=== PATIENT | male | born 1975 | race Caucasian/White ===

== ENCOUNTER 2020-09-07 13:26 | Emergency (ER) | payer OTHER, SELFPAY ==
[2020-09-07 13:42] VITALS: BP 151/94; PULSE 108; RESP 16; TEMP 38.1; O2SAT 98
[2020-09-07 14:05] VITALS: BP 151/94; PULSE 108; RESP 16; TEMP 38.1; O2SAT 98
--- NOTE | 2020-09-07 14:14 | ED.GENADULT ---
HPI - General Adult General Chief complaint: Upper Respiratory Infection Stated complaint: achey fever Source: patient Mode of arrival: ambulatory Limitations: no limitations History of Present Illness HPI narrative: Patient presents for evaluation of generalized body aches. Indicates approximately 6 days ago he had symptoms that he thought were related to a common cold, particularly sinus congestion. Proximately 2 to 3 days ago he developed a headache and generalized body aches. Reports a burning sensation in bilateral naris and states that occasionally he feels a burning sensation in his lungs with deep inspiration. He has experienced hot flashes but denies any objective fever. He is also experiencing diarrhea. He denies any chills, nausea, vomiting, cough, shortness of breath. He does not smoke. No known recent sick contacts. He took ibuprofen for his symptoms, which has seemed to help. Related Data Home Medications Medication Instructions Recorded Confirmed Lam 09/07/20 Allergies Allergy/AdvReac Type Severity Reaction Status Date / Time No Known Allergies Allergy Verified 09/07/20 13:58 Review of Systems Review of Systems: Narrative: CONSTITUTIONAL: Reports hot flashes. Denies fever, chills, or sweats. EYES: Denies visual changes, redness, or discharge. ENT: Reports sinus congestion. Denies sore throat, or otalgia. CARDIOVASCULAR: Denies chest pain, palpitations, or edema. RESPIRATORY: Reports occasional burning in the chest with deep inspiration. Denies cough or dyspnea. GASTROINTESTINAL: Reports diarrhea. Denies abdominal pain, nausea, vomiting. GENITOURINARY: Denies dysuria or hematuria. SKIN: Denies rash or itching. MUSCULOSKELETAL:Reports generalized body aches NEUROLOGIC: Reports headache. Denies numbness, dizziness, or weakness. PSYCHIATRIC: Denies anxiety or depression. [facility] Past Medical History Medical History (Updated 09/07/20 @ 14:25 by Shekhar Yadav, IJEOMA, SHINE) No pertinent past medical history Surgical History Surgical History No pertinent past surgical history Family History Family History Mother No pertinent past medical history Father No pertinent past medical history Social History Social History Smoking status: Never smoker Alcohol intake: never Substance use: never Living arrangements: with roommate(s) Occupation/Education: occupation Additional occupation/education comments: Works at [employer] Gender identity (if verbalized by the patient): Male Spiritual care concerns: No Exam Narrative: Exam Narrative: GENERAL: Well-appearing, well-nourished, and in no acute distress. HEAD: Normocephalic, atraumatic. EYES: PERRLA and EOMI. ENT: Nares clear, no rhinorrhea or epistaxis. Mucous membranes moist. Oropharynx without tonsillar hypertrophy exudate or other lesions. Bilateral TMs pearly villavicencio nonbulging NECK: Supple. No adenopathy or masses. No carotid bruits or JVD CHEST: Clear to auscultation. No respiratory distress. No wheezes rales or rhonchi HEART: Regular rate and rhythm. No murmur heard. Normal peripheral pulses. ABDOMEN: Soft, nontender, nondistended, normal active bowel sounds. EXTREMITIES: Normal range of motion. No edema. SKIN: Warm, dry, no rash. NEURO: No focal deficits. Alert and oriented x3. PSYCH: Normal mood and affect. Course Course Emergency Course: 45-year-old male with no past medical history presents today with concerns of generalized body aches. His rapid Covid was positive. She was mildly tachycardic but was febrile here and was given Tylenol for this this is a reasonable explanation for his tachycardia. He has absolutely no shortness of breath or cough to suggest PE. I offered to x-ray the patient which he declined. He was advised to
[2020-09-07 14:27] VITALS: TEMP 38
[2020-09-07] MEDS: ACETAMINOPHEN 500 MG TABLET 1000 MG PO (14:27)
== END 2020-09-07 14:37 | disposition home or self-care (01) ==
PROVIDERS: Emergency Provider Nurse Practitioner
DX: U07.1 COVID-19 (principal)
CPT/HCPCS: 87426; 99213; A9270; C9803; G0463